=== PATIENT | female | born 1990 | race Caucasian/White ===

== ENCOUNTER 2023-10-22 16:44 | Observation (INO) | payer BC, SELFPAY ==
[2023-10-22 16:53] VITALS: BP 132/80; BMI 29.5
== END 2023-10-22 17:48 | disposition home or self-care (01) ==
LOC: LDRP 16:44
PROVIDERS: ADMITTING PHYSICIAN Obstetrics & Gynecology; REFERRING PHYSICIAN Obstetrics & Gynecology
DX: O36.8130 Decreased fetal movements, third trimester, not applicable or unspecified (principal); Z3A.40 40 weeks gestation of pregnancy; J45.990 Exercise induced bronchospasm; Z88.1 Allergy status to other antibiotic agents; Z88.0 Allergy status to penicillin
CPT/HCPCS: 59025; 36415; 86850; 86900; 86901; G0378

== ENCOUNTER 2023-10-23 08:52 | Inpatient (IN) | payer BC, SELFPAY ==
[2023-10-23 08:58] VITALS: BP 150/94; BMI 29.6
[2023-10-23 09:38] LABS: % Basophils 0.3 % (0-2); % Eosinophils 2.8 % (0-6); % Immature Granulocytes 0.9 % (0-0.5); % Lymphocytes 14.9 % (20.5-51.1); % Monocytes 7.9 % (1.7-9.3); % Neutrophils 73.2 % (42.2-75.2); Absolute Eosinophils 0.3 10^3/uL (0-0.7); Absolute Immature Granulocytes 0.1 10^3/uL (0-0.05); Absolute Lymphocytes 1.7 10^3/uL (1.2-3.4); Absolute Monocytes 0.9 10^3/uL (0.1-0.6); Absolute Neutrophils 8.1 10^3/uL (1.4-6.5); Hematocrit 37.6 % (37.0-47.0); Hemoglobin 13.6 g/dL (12.0-16.0); Mean Corp Hgb Conc. 36.2 g/dL (33.0-37.0); Mean Corpuscular Hgb 29.5 pg (27.0-31.0); Mean Corpuscular Volume 81.6 fL (81.0-99.0); Mean Platelet Volume 11.6 fL (7.4-10.4); Nucleated Red Blood Cells % 0 %; Platelet Count 235 10^3/uL (130-400); Red Blood Cell Count 4.61 10^6/uL (4.20-5.40); Red Cell Dist. Width 13.7 % (11.5-14.5)
[2023-10-23] MEDS: CLEOCIN 50 IV ×2 (09:52→17:54)
[2023-10-23 10:01] LABS: ALT (SGPT) 26 U/L (0-35); AST (SGOT) 29 U/L (14-36); Albumin 3.5 g/dl (3.5-5.0); Alkaline Phosphatase 242 U/L (38-126); Blood Urea Nitrogen 8 mg/dl (7-17); Calcium 9.6 mg/dl (8.4-10.2); Carbon Dioxide 19 mmol/L (22-30); Chloride 110 mmol/L (98-107); Estimated Creatinine Clearance > 125 ml/min; Glucose 90 mg/dl (70-99); Potassium 4.3 mmol/L (3.5-5.1); Sodium 137 mmol/L (135-145); Total Bilirubin 0.6 mg/dl (0.2-1.3); Total Protein 6.3 g/dl (6.3-8.2); eGFR > 60.00
[2023-10-23] MEDS: ZOFRAN 4 MG IV (10:44)
[2023-10-23] MEDS: SUBLIMAZE 100 MCG EPIDURAL (13:04)
[2023-10-23] MEDS: FENTANYL/BUPIVACAINE 100 EPIDURAL ×2 (13:05→20:45)
[2023-10-23] MEDS: PITOCIN 30 UNITS/NSS 500 ML IV (15:27)
[2023-10-23] MEDS: BICITRA 30 ML PO (22:49)
[2023-10-23] MEDS: TYLENOL 1000 MG PO (22:49)
[2023-10-23 23:31] LABS: B.E. Cord ABG -3.9 mMOL/L; Cord ABG Comment CORD BLOOD; HCO3 Cord ABG 24.6 mmol/L; O2 Saturation % Cord ABG 12.1 %; PCO2 Cord ABG 56 mmHg; PO2 Cord ABG 9 mmHg; pH Cord ABG 7.25
[2023-10-23 23:33] LABS: B.E. Cord ABG -5.6 mMOL/L; HCO3 Cord ABG 21.6 mmol/L; PCO2 Cord ABG 47 mmHg; PO2 Cord ABG 16 mmHg; pH Cord ABG 7.27
[2023-10-24] MEDS: CYTOTEC 800 MCG RECTAL (00:30)
[2023-10-24] MEDS: GENTAMICIN 60 MG IV (01:22)
[2023-10-24] MEDS: VANCOCIN 200 IV (01:24)
[2023-10-24] MEDS: HEMABATE 250 MCG IM (01:25)
[2023-10-24] MEDS: MOTRIN 600 MG PO (03:34)
[2023-10-24] MEDS: REGLAN 10 MG IV (03:40)
[2023-10-24] MEDS: TYLENOL 650 MG PO (06:03)
[2023-10-24 06:23] LABS: Hematocrit 31.2 % (37.0-47.0); Hemoglobin 11.2 g/dL (12.0-16.0); Mean Corp Hgb Conc. 35.9 g/dL (33.0-37.0); Mean Corpuscular Hgb 29.5 pg (27.0-31.0); Mean Corpuscular Volume 82.1 fL (81.0-99.0); Mean Platelet Volume 11.9 fL (7.4-10.4); Platelet Count 201 10^3/uL (130-400); Red Cell Dist. Width 13.8 % (11.5-14.5); White Blood Cell Count 25.5 10^3/uL (4.8-10.8)
--- NOTE | 2023-10-24 07:27 | W.PN.ANS.POP ---
Anesthesia Post Operative
- Anesthesia Post Op Note
Vital Signs Stable-See Nursing Note: Yes
Airway Patent: Yes
Adequate Pain Control: Yes
Change in Mental Status: No
Current Postoperative Nausea & Vomiting: No
Anesthesia Complications: No
General Anesthetic Recall: No
Unplanned Admission: No
Post Op Hydration Adequate: Yes
[2023-10-24] MEDS: TORADOL 15 MG IV ×3 (08:49→20:40)
[2023-10-24] MEDS: MYLICON 80 MG PO (08:50)
[2023-10-24] MEDS: PRENATAL PLUS 1 TABLET PO (08:50)
[2023-10-24] MEDS: SENOKOT-S 1 TABLET PO (08:50)
[2023-10-25] MEDS: TORADOL 15 MG IV (02:19)
[2023-10-25] MEDS: PRENATAL PLUS 1 TABLET PO (08:18)
[2023-10-25] MEDS: SENOKOT-S 1 TABLET PO (09:17)
[2023-10-25] MEDS: MOTRIN 600 MG PO ×3 (09:17→21:50)
[2023-10-25] MEDS: TYLENOL 650 MG PO ×3 (09:17→21:50)
[2023-10-26] MEDS: TYLENOL 650 MG PO ×2 (04:19→08:17)
[2023-10-26] MEDS: MOTRIN 600 MG PO ×2 (04:19→12:21)
[2023-10-26] MEDS: PRENATAL PLUS 1 TABLET PO (08:17)
[2023-10-26] MEDS: SENOKOT-S 1 TABLET PO (08:18)
--- NOTE | 2023-10-26 10:07 | W.DS.TRANS ---
DC Summary - Clinical Associate
-
Discharge Instructions:
Discharge Diagnosis/Procedures Section
Instructions:
Stand-Alone Forms: LDRP Delivery
Changes to Home Medications: No
Discharge Medications:
DC Medications w/original date entered in [facility]
Elderberry Zinc Vit C 1 cap PO DAILY Supplement 10/22/23
prenat.vits,cynthia,sxr-dodd-dkmoi 1 tab PO DAILY Supplement 10/22/23
acetaminophen 325 mg tablet 650 mg (2 x 325 mg) PO Q4HPRN PRN mild pain #0 tabs 10/26/23
ibuprofen 600 mg tablet 600 mg PO Q6HPRN PRN cramps #45 tabs 10/26/23
sennosides 8.6 mg-docusate sodium 50 mg tablet (Stool Softener-Laxative) 1 tab PO DAILYPRN PRN constipation #0 tabs 10/26/23
Home Medication Changes
Pending Results: No
[2023-10-26 12:35] LABS: Syphilis/T. pallidum Ab Reflex Negative (Negative)
== END 2023-10-26 12:32 | disposition home or self-care (01) | DRG 787 ==
LOC: LDRP 08:52
PROVIDERS: ADMITTING PHYSICIAN Obstetrics & Gynecology
PROC: 10H07YZ Insertion of Other Device into Products of Conception, Via Natural or Artificial Opening (ICD-10-PCS; 2023-10-23)
PROC: 10D00Z1 Extraction of Products of Conception, Low, Open Approach (ICD-10-PCS; 2023-10-24)
PROC: 6A550ZT Pheresis of Cord Blood Stem Cells, Single (ICD-10-PCS; 2023-10-24)
DX: O48.0 Post-term pregnancy (principal); O72.1 Other immediate postpartum hemorrhage; Z3A.40 40 weeks gestation of pregnancy; Z37.0 Single live birth; O99.824 Streptococcus B carrier state complicating childbirth; J45.990 Exercise induced bronchospasm; O66.0 Obstructed labor due to shoulder dystocia; O77.0 Labor and delivery complicated by meconium in amniotic fluid; O62.0 Primary inadequate contractions; Z88.1 Allergy status to other antibiotic agents; Z88.0 Allergy status to penicillin
CPT/HCPCS: 88307; 80053; 82803; 85025; 85027; 86780; 86850; 86900; 86901

== ENCOUNTER → 2024-10-23 15:55 | Outpatient (REF) | payer BC, SELFPAY | LOC: PNTC 15:55 | PROVIDERS: ATTENDING PHYSICIAN Obstetrics & Gynecology | DX: Z36.0 Encounter for antenatal screening for chromosomal anomalies (principal); Z36.82 Encounter for antenatal screening for nuchal translucency | CPT/HCPCS: 76801; 76813 ==